=== PATIENT | male | born 1975 | race Caucasian/White ===

== ENCOUNTER 2020-04-16 21:13 | Inpatient (IN) | payer BC, OTHER ==
[~2020-04-16] VITALS: Ht 177.8 cm; Wt 80.9 kg
[2020-04-16] MEDS ORDERED: BUPR1FIL17 SL (21:52)
[2020-04-17] MEDS ORDERED: ondansetron/PF 4mg/2ml inj IV PRN
[2020-04-17] MEDS ORDERED: potassium CL 10mEq/100ml bag 100 ML IV PRN ×2
[2020-04-17] MEDS ORDERED: magnesium 4gm in 100ml NS 100 ML IV PRN
[2020-04-17] MEDS ORDERED: magnesium 2GM in 50ml NS 50 ML IV PRN
[2020-04-17] MEDS ORDERED: potassium Cl 20 mEq SR tablet PO PRN ×2
[2020-04-17] MEDS ORDERED: morphine 2 MG/ML inj. syringe IV PRN
[2020-04-17] MEDS ORDERED: magnesium Cl slow-release 64mg tablet PO PRN
[2020-04-17] MEDS ORDERED: acetaminophen 325mg tablet PO PRN ×2
[2020-04-17] MEDS ORDERED: HYDROcodone/acetaminophen 5mg/325mg tablet PO PRN
--- NOTE | 2020-04-17 01:04 | NUR ---
PT ADENIKE: [phone]
[2020-04-17 01:07] LABS: HEMOGLOBIN A1C 5.9 % (4.5-6.2)
[2020-04-17 01:40] LABS: URINE AMPHETAMINE SCREEN NEGATIVE (Neg); URINE BARBITUATE SCREEN NEGATIVE (Neg); URINE BENZODIAZEPINES SCREEN NEGATIVE (Neg); URINE CANNABINOID SCREEN POSITIVE (Neg); URINE COCAINE SCREEN NEGATIVE (Neg); URINE METHADONE SCREEN NEGATIVE (Neg); URINE OPIATE SCREEN NEGATIVE (Neg); URINE PHENCYCLIDINE SCREEN NEGATIVE (Neg)
[2020-04-17] MEDS: normal saline 1000ml 1,000 ML IV SCH ×3 (01:44→11:48)
[2020-04-17 02:00] VITALS: BP 141/81
[2020-04-17 06:09] LABS: BASOPHILS % (AUTO) 0.2 % (0-1); EOSINOPHILS % (AUTO) 0.5 % (0-6); HEMATOCRIT 39.7 % (42.0-52.0); HEMOGLOBIN 13.6 g/dl (14.0-17.9); LYMPHOCYTES # (AUTO) 1.7 X10'3 (1.1-4.8); MEAN CORPUSCULAR HEMOGLOBIN 29.9 PG (27.0-31.0); MEAN CORPUSCULAR HGB CONC 34.3 g/dL (33.0-36.5); MEAN CORPUSCULAR VOLUME 87.3 FL (78-98); MEAN PLATELET VOLUME 8.5 FL (7.4-10.4); MONOCYTES # (AUTO) 0.7 X10'3 (0-0.9); MONOCYTES % (AUTO) 7.7 % (2-12); NEUTROPHILS # (AUTO) 6.6 X10'3 (1.8-7.7); NEUTROPHILS % (AUTO) 72.6 % (42-75); PLATELET COUNT 216 X10'3 (140-440); RED BLOOD COUNT 4.55 X10'6 (4.70-6.10); WHITE BLOOD COUNT 9.1 X10'3 (4.5-11.0)
[2020-04-17 06:17] LABS: ALANINE AMINOTRANSFERASE 39 U/L (12-78); ALBUMIN 3.8 G/DL (3.4-5.0); ALBUMIN/GLOBULIN RATIO 1.1 (1.1-1.5); ALKALINE PHOSPHATASE 58 IU/L (46-116); ANION GAP 7 (8-16); ASPARTATE AMINO TRANSFERASE 14 U/L (10-37); BILIRUBIN,TOTAL 0.5 MG/DL (0.1-1.0); BLOOD UREA NITROGEN 10 MG/DL (7-18); BUN/CREATININE RATIO 10.5 (5.4-32.0); CALCIUM 9.1 MG/DL (8.5-10.1); CHLORIDE 105 MMOL/L (99-107); CREATININE 0.95 MG/DL (0.60-1.10); GLUCOSE 102 MG/DL (70-104); POTASSIUM 4.1 MMOL/L (3.5-5.1); SODIUM 139 MMOL/L (135-145); TOTAL PROTEIN 7.2 G/DL (6.4-8.2); eGFR 86 ML/MIN
[2020-04-17 06:20] LABS: CHOL/HDL RATIO 4.2 (0.00-4.99); CHOLESTEROL 230 MG/DL (0-200); HDL CHOLESTEROL 55 MG/DL (35-60); LDL CHOLESTEROL 165 MG/DL (50-100); MAGNESIUM 1.9 MG/DL (1.5-2.4); TRIGLYCERIDES 76 MG/DL (20-135)
--- NOTE | 2020-04-17 06:26 | NUR ---
Problems reprioritized. Patient report given, questions answered & plan of care reviewed with Brian POWERS. Patient stable at transfer of care. All current needs met
--- NOTE | 2020-04-17 06:27 | NUR ---
Patient in room PCU 3013. I have received report from GIO Hansen and had the opportunity to ask questions and assume patient care.
[2020-04-17 06:57] VITALS: BP 106/71
[2020-04-17] MEDS ORDERED: pantoprazole 40mg Tablet.DR PO SCH (07:30)
[2020-04-17] MEDS ORDERED: K and/or MAG REPLACEMENT MC SCH (08:00)
[2020-04-17] MEDS ORDERED: heparin, porcine 5000 units/ml vial SQ SCH (08:00)
--- NOTE | 2020-04-17 08:56 | NUR ---
Patient down to MRI.
--- NOTE | 2020-04-17 09:30 | NUR ---
patient returned back to room
[2020-04-17] MEDS ORDERED: atorvastatin 10mg tablet PO SCH (09:45)
[2020-04-17 10:45] VITALS: BP 107/67
[2020-04-17 11:41] LABS: CLARITY,URINE CLEAR (Clear); COLOR,URINE STRAW (Yellow); GLUCOSE, URINE NEGATIVE (Neg); KETONES,URINE NEGATIVE (Neg); LEUKOCYTE ESTERASE ,URINE NEGATIVE (Neg); NITRITES, URINE NEGATIVE (Neg); OCCULT BLOOD,URINE TRACE-INTACT (Neg); PROTEIN,URINE NEGATIVE (Neg); UA COLLECTION TYPE NON-SPECIFIED; UROBILINOGEN,URINE 0.2 E.U/dL (0.2-1.0)
[2020-04-17 11:43] LABS: SQUAMOUS EPITHELIAL CELL,UR FEW /LPF (FEW)
[2020-04-17 11:44] LABS: BACTERIA,URINE FEW /HPF (Neg); RBC,URINE 0-2 /HPF (0-2); WBC,URINE 0-4 /HPF (0-4)
--- NOTE | 2020-04-17 12:17 | NUR ---
Teleneuro ordered for patient per Dr. Owens. Teleneuro called for consult. Monitor in room and on.
[2020-04-17 13:56] VITALS: BP_SYST 108; BP_SYST 115; BP_SYST 125; BP_DIAS 64; BP_DIAS 72; BP_DIAS 76
[2020-04-17 14:00] VITALS: BP 107/63
--- NOTE | 2020-04-17 14:12 | NUR ---
Teleneuro consult completed.
[2020-04-17] MEDS ORDERED: buprenorphine/naloxone 2-0.5mg sublingual tablet SL SCH (17:00)
[2020-04-17] MEDS ORDERED: ATOR10TA PO (17:04)
[2020-04-17] MEDS ORDERED: PANT40TA54 PO (17:04)
[2020-04-17 18:00] VITALS: BP 135/83
--- NOTE | 2020-04-17 18:42 | NUR ---
Patient alert and oriented and in no apparent distress. Discussed with patient discharge teaching and new prescriptions. Patient verbalized understanding of teaching. Patient ready for dc. Received call from holter scanning technician that patient can have MRI before he dc if patient agreeable. Patient agreeable and wanted MRI with contrast prior to leaving. Patient down to MRI. Dr. Owens stated patient cannot now and will need to have imaging read and depending on results patient may or may not be dc'd. Report given to oncoming RNMatteo who will let patient know.
--- NOTE | 2020-04-17 18:45 | NUR ---
Problems reprioritized. Patient report given, questions answered & plan of care reviewed with GIO Felipe.
--- NOTE | 2020-04-17 19:00 | NUR ---
I have received report from GIO Torres and had the opportunity to ask questions and assume patient care.
[2020-04-17] MEDS ORDERED: GADOTERATE MEGLUMINE 7.5 MMOL/15 ML VIAL IV ONE (19:12)
--- NOTE | 2020-04-17 20:30 | NUR ---
Patient was dc'd home with belongings . DC instructions were provided/ picked him up
--- NOTE | 2020-04-17 23:02 | NUR ---
I agree with GIO Torresassessment specialist. Patient is ALOx4, in no apparent distress, Lungs are clear, Bowel sounds in all four quadrants,Patient denies any dizziness, or SOB. Patient is waiting for his to come pick him up.
== END 2020-04-17 19:45 | disposition home or self-care (01) | DRG 312 ==
LOC: ER 21:14 → ED HOLD 23:59 → PCU 3S 04-17 01:30
PROVIDERS: ADMIT Internal Medicine; ATTEND Family Medicine
DX: R55 Syncope and collapse (principal); R00.1 Bradycardia, unspecified; F12.90 Cannabis use, unspecified, uncomplicated; F41.9 Anxiety disorder, unspecified; G89.4 Chronic pain syndrome; T67.5XXA Heat exhaustion, unspecified, initial encounter; X30.XXXA Exposure to excessive natural heat, initial encounter
CPT/HCPCS: 36415; 70544; 70551; 70553; 80053; 80061; 80305; 81001; 83036; 83735; 84443; 84484; 85025; 87081; 93005; 93306; 93880; 97161; 97530; 99285; A9575; G0378; J1644; J7030